=== PATIENT | female | born 2000 | race Caucasian/White ===

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

== ENCOUNTER 2020-01-01 12:10 | Outpatient (CLI) | payer OTHER, MEDICAID, SELFPAY ==
[2020-01-01 12:26] VITALS: BP 116/78; PULSE 93; RESP 13; TEMP 36.4; O2SAT 100
--- NOTE | 2020-01-01 12:36 | PC.NURSE ---
iuss master analyst here to do stress test on pt/
--- NOTE | 2020-01-01 12:45 | PC.NURSE ---
31 weeks , concern for intermittent rapid heart rate 120-130's , occured during asleep. +light headed,shortness of breath, denies chest pain. 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
[2020-01-01 12:47] VITALS: BP 125/68; PULSE 95; RESP 16; O2SAT 98
--- NOTE | 2020-01-01 13:04 | PM.OBTRLD ---
Visit Information Visit Information Date of evaluation: 01/01/20 Primary OB Provider: Maude Salinas On-call OB Provider: Terrance Billy Comments/Additional reasons for admission: 19 YO @ 31wks here for evaluation of palpitations. Notices racing heart w/ feeling lightheaded up to 3x/week, lasting 30-60 minutes at at time. Was instructed to come to ED for an EKG next time it occurs. It has gotten a little better since it started 15 minutes prior to arriving in ED. No cough, SOB, contractions or VB. Vital Signs Vital Signs: Vital Signs - 8 hr 01/01/20 12:26 01/01/20 12:47 Temperature 97.5 F L Pulse Rate 93 H 95 H Respiratory Rate 13 16 Blood Pressure 116/78 Blood Pressure [Left Arm] 125/68 Pulse Oximetry 100 98 PFSH Social History Smoking Status: Never smoker Review of Systems Review of Systems ROS: Yes All systems reviewed with the patient and are negative except as otherwise documented Exam Vital Signs (past 8 hours): - 01/01/20 12:26 01/01/20 12:47 Temperature 97.5 F L Pulse Rate 93 H 95 H Respiratory Rate 13 16 Blood Pressure 116/78 Blood Pressure [Left Arm] 125/68 Pulse Oximetry 100 98 Oxygen Delivery Method Room Air Chest Chest: normal inspection of the chest Resp Effort & Inspection: normal respiratory effort Cardio Rhythm: regular rhythm Heart Sounds: S1 normal and S2 normal Other: Gravid abdomen, no tenderness Evaluation Evaluation Baseline heart rate: 140 Variability: Moderate (11-25) monitor accelerations: Present monitor decelerations: Absent Contraction Frequency (minutes): 0 Category of Tracing: I Comments: CE deferred, not indicated Sinus tachycardia, rate 104 on EKG Diagnosis, Plan/Disposition Plan/Disposition Plan: Discharge to home with routine arrhythmia and precautions. Follow-up w/ CNM as previously scheduled. Plan to notify CNM if HR >120 at rest occurs again and we will evaluate this in L&D triage at that time. OB Disposition: home
== END 2020-01-01 13:29 | disposition home or self-care (01) ==
LOC: ED 13:15 → OB 03-22 09:00
PROVIDERS: PCP Nurse Practitioner Obstetrics & Gynecology; Visit Provider Nurse Practitioner Obstetrics & Gynecology
DX: O26.893 Other specified pregnancy related conditions, third trimester (principal); R00.2 Palpitations; Z3A.31 31 weeks gestation of pregnancy
CPT/HCPCS: 93005; 99283

== ENCOUNTER → 2020-01-27 10:47 | Outpatient (CLI) | payer OTHER, MEDICAID, SELFPAY ==
[2020-01-27 11:21] LABS: Alanine Aminotransferase 9 IU/L (<35); Albumin 3.5 g/dL (3.5-5.0); Albumin Globulin Ratio 1.2 (1.0-2.8); Alkaline Phosphatase 181 U/L (38-126); Aspartate Aminotransferase 19 IU/L (14-36); Bilirubin Total 0.5 mg/dL (0.2-1.3); Bilirubin Unconjugated 0.4 mg/dL (0.0-1.1); Globulin 2.9 g/dL (1.7-4.1); HEMOLYSIS < 15 (0-50); Total Protein 6.4 g/dL (6.3-8.2)
[2020-01-28 09:43] LABS: Bile Acids 2.6 umol/L (0.0-10.0)
== END ==
PROVIDERS: PCP Nurse Practitioner Obstetrics & Gynecology; Referring Provider Nurse Practitioner Obstetrics & Gynecology; Visit Provider Nurse Practitioner Obstetrics & Gynecology
DX: Z34.03 Encounter for supervision of normal first pregnancy, third trimester (principal); L29.9 Pruritus, unspecified
CPT/HCPCS: 36415; 80076; 82239

== ENCOUNTER → 2020-01-31 18:11 | Outpatient (ROUT) | payer OTHER, MEDICAID, SELFPAY | PROVIDERS: PCP Nurse Practitioner Obstetrics & Gynecology; Visit Provider Nurse Practitioner Obstetrics & Gynecology | DX: Z36.85 Encounter for antenatal screening for Streptococcus B (principal) | CPT/HCPCS: 87081 ==

== ENCOUNTER → 2020-02-03 11:30 | Outpatient (CLI) | payer OTHER, MEDICAID, SELFPAY ==
[2020-02-03 13:08] LABS: Alanine Aminotransferase 8 IU/L (<35); Albumin 3.4 g/dL (3.5-5.0); Albumin Globulin Ratio 1.2 (1.0-2.8); Alkaline Phosphatase 174 U/L (38-126); Aspartate Aminotransferase 18 IU/L (14-36); Bilirubin Total 0.4 mg/dL (0.2-1.3); Bilirubin Unconjugated 0.3 mg/dL (0.0-1.1); Globulin 2.9 g/dL (1.7-4.1); HEMOLYSIS < 15 (0-50); Total Protein 6.3 g/dL (6.3-8.2)
[2020-02-04 10:58] LABS: Bile Acids 7.6 umol/L (0.0-10.0)
== END ==
PROVIDERS: PCP Nurse Practitioner Obstetrics & Gynecology; Referring Provider Nurse Practitioner Obstetrics & Gynecology; Visit Provider Nurse Practitioner Obstetrics & Gynecology
DX: Z34.03 Encounter for supervision of normal first pregnancy, third trimester (principal); L29.9 Pruritus, unspecified
CPT/HCPCS: 36415; 80076; 82239

== ENCOUNTER → 2020-02-08 10:46 | Outpatient (CLI) | payer OTHER, MEDICAID, SELFPAY ==
[2020-02-08 11:24] LABS: Alanine Aminotransferase 9 IU/L (<35); Albumin 3.6 g/dL (3.5-5.0); Albumin Globulin Ratio 1.1 (1.0-2.8); Alkaline Phosphatase 193 U/L (38-126); Aspartate Aminotransferase 20 IU/L (14-36); Bilirubin Total 0.6 mg/dL (0.2-1.3); Bilirubin Unconjugated 0.5 mg/dL (0.0-1.1); Globulin 3.3 g/dL (1.7-4.1); HEMOLYSIS < 15 (0-50); Total Protein 6.9 g/dL (6.3-8.2)
[2020-02-11 11:36] LABS: Deoxycholic Acids 1.4 umol/L (.); Total Bile Acids 5.1 umol/L (.); Ursodeoxycholic Acids <0.10 umol/L (.)
== END ==
PROVIDERS: PCP Nurse Practitioner Obstetrics & Gynecology; Referring Provider Nurse Practitioner Obstetrics & Gynecology; Visit Provider Nurse Practitioner Obstetrics & Gynecology
DX: Z34.03 Encounter for supervision of normal first pregnancy, third trimester (principal); L29.9 Pruritus, unspecified
CPT/HCPCS: 36415; 80076; 82542

== ENCOUNTER → 2020-02-17 11:06 | Outpatient (CLI) | payer OTHER, MEDICAID, SELFPAY ==
[2020-02-17 11:35] LABS: Alanine Aminotransferase 8 IU/L (<35); Albumin 3.5 g/dL (3.5-5.0); Albumin Globulin Ratio 1.1 (1.0-2.8); Alkaline Phosphatase 199 U/L (38-126); Aspartate Aminotransferase 21 IU/L (14-36); Bilirubin Total 0.5 mg/dL (0.2-1.3); Bilirubin Unconjugated 0.4 mg/dL (0.0-1.1); Globulin 3.2 g/dL (1.7-4.1); HEMOLYSIS < 15 (0-50); Total Protein 6.7 g/dL (6.3-8.2)
== END ==
PROVIDERS: PCP Nurse Practitioner Obstetrics & Gynecology; Referring Provider Nurse Practitioner Obstetrics & Gynecology; Visit Provider Nurse Practitioner Obstetrics & Gynecology
DX: Z34.03 Encounter for supervision of normal first pregnancy, third trimester (principal); L29.9 Pruritus, unspecified
CPT/HCPCS: 36415; 80076; 82239

== ENCOUNTER 2020-02-28 14:12 | Outpatient (CLI) | payer OTHER, MEDICAID, SELFPAY ==
[2020-02-28 15:12] LABS: Add Manual Diff / Slide Review NO; Basophils Absolute Auto 0 /uL (0-100); Basophils Percent Auto 0.4 % (0-2); Eosinophils Absolute Auto 0 /uL (0-450); Eosinophils Percent Auto 0.2 % (2-4); Hematocrit 32.5 % (36-46); Hemoglobin 10.5 g/dL (12.0-16.0); Lymphocytes Absolute Auto 1400 /uL (1100-4500); Lymphocytes Percent Auto 10.4 % (25-40); Mean Corpuscular HGB Conc 32.3 % (30-36); Mean Corpuscular Hemoglobin 26.4 PG (26-34); Mean Corpuscular Volume 81.9 fL (80-100); Monocytes Absolute Auto 1000 /uL (0-900); Monocytes Percent Auto 7.9 % (3-14); Neutrophils Absolute Auto 10800 /uL (1500-7000); Neutrophils Percent Auto 81.1 % (50-75); Platelet Count 213 X10^3/uL (150-400); Red Blood Cell Count 3.96 X10^6/uL (4.0-5.2); White Blood Cell Count 13.3 X10^3/uL (4.5-11.0)
[2020-02-28 15:17] LABS: Aspartate Aminotransferase 20 IU/L (14-36); BUN Creatinine Ratio 9.8 (6-22); Blood Urea Nitrogen 5 mg/dL (7-17); Estimated Glomerular Filt Rate > 60.0 mL/min (>60); Uric Acid 5.9 mg/dL (2.5-6.2)
--- NOTE | 2020-02-28 15:20 | PM.OBTRLD ---
Visit Information Visit Information Date of evaluation: 02/28/20 Primary OB Provider: Maude Salinas On-call OB Provider: Arelis Taylor Reason for Evaluation: Yes non-stress test and Yes other Comments/Additional reasons for admission: 19YO @ [id number] here for evaluation after elevated BP in clinic. Routine PN care w/ CNM. Lots of FM. No ctx, VB or LOF. No [place], vision changed or RUQ pain. CE in clinic 4cm/80%/-1, posterior, firm. Vital Signs Vital Signs: BP 126/74, HR88, T97.5F Temporal PFSH Social History Smoking Status: Never smoker Review of Systems Review of Systems ROS: Yes All systems reviewed with the patient and are negative except as otherwise documented Exam Presentation: vertex Objective Labs Result Diagrams: 02/28/20 14:55 02/28/20 14:55 Labs: Laboratory Results - last 24 hr 02/28/20 02/28/20 14:55 14:55 WBC 13.3 H RBC 3.96 L Hgb 10.5 L Hct 32.5 L MCV 81.9 MCH 26.4 MCHC 32.3 RDW 15.0 H Plt Count 213 Neut % (Auto) 81.1 H Lymph % (Auto) 10.4 L [place] % (Auto) 7.9 Eos % (Auto) 0.2 L Baso % (Auto) 0.4 Neut # (Auto) 13271 H Lymph # (Auto) 1400 [place] # (Auto) 1000 H Eos # (Auto) 0 Baso # (Auto) 0 BUN 5 L Creatinine 0.51 L Estimated GFR > 60.0 BUN/Creatinine Ratio 9.8 Uric Acid 5.9 AST 20 Evaluation Evaluation Baseline heart rate: 130 Variability: Moderate (11-25) monitor accelerations: Present monitor decelerations: Early Contraction Frequency (minutes): 5 Uterine Contraction Intensity: Mild Category of Tracing: I Laboratory results: Laboratory Tests 02/28/20 02/28/20 14:55 14:55 WBC 13.3 H RBC 3.96 L Hgb 10.5 L Hct 32.5 L MCV 81.9 MCH 26.4 MCHC 32.3 RDW 15.0 H Plt Count 213 Neut % (Auto) 81.1 H Lymph % (Auto) 10.4 L [place] % (Auto) 7.9 Eos % (Auto) 0.2 L Baso % (Auto) 0.4 Neut # (Auto) 73341 H Lymph # (Auto) 1400 [place] # (Auto) 1000 H Eos # (Auto) 0 Baso # (Auto) 0 BUN 5 L Creatinine 0.51 L Estimated GFR > 60.0 BUN/Creatinine Ratio 9.8 Uric Acid 5.9 AST 20 Diagnosis, Plan/Disposition Final Diagnosis (1) Elevated blood pressure reading without diagnosis of hypertension: Current Visit: Yes Status: Acute (2) 40 weeks gestation of : Current Visit: Yes Status: Acute Plan/Disposition Plan: Discharge to home with routine precautions. Follow-up 03/02/20 @ 1pm for BP check. OB Disposition: home
[2020-02-28 16:33] LABS: Creatinine Urine Random 9.8 mg/dL; Protein (Total) Urine Random 15 mg/dL (0-12); Protein Creatinine Ratio Urine 1.53 GRAM/24H
== END 2020-02-28 15:31 | disposition home or self-care (01) ==
LOC: LABOR 15:27 → OB 02-29 12:39
PROVIDERS: Referring Provider Nurse Practitioner Obstetrics & Gynecology; Visit Provider Nurse Practitioner Obstetrics & Gynecology
DX: O48.0 Post-term pregnancy (principal); O26.893 Other specified pregnancy related conditions, third trimester; R03.0 Elevated blood-pressure reading, without diagnosis of hypertension; Z3A.40 40 weeks gestation of pregnancy
CPT/HCPCS: 59025; 82570; 84156; 84450; 84550; 85025; G0378; G0379

== ENCOUNTER 2020-03-02 09:26 | Inpatient (IN) | payer OTHER, MEDICAID, SELFPAY ==
--- NOTE | 2020-03-02 09:45 | P.HPOB_ITS ---
OB HPI Date/Time Date of admission: 03/02/20 Date Patient Seen: 03/02/20 Time Patient Seen: 09:15 History of Present Condition Chief complaint: MATERNITY : 1 Para: 0 Estimated Date of Delivery: 02/28/20 Estimated Gestational Age (weeks): 40.3 Narrative: Jes Geiger is a 19 year old female @ [id number] by LMP and 10 wk US who presents in active labor. Had SROM, clear fluid @ 0700 followed by immediately strong contractions. now crying and breathing through frequent contractions. NO VB. Fluid is clear. Uncomplicated PN care w/ CNM. 28wk ROSA from [place]. Received flu and Tdap vaccines. Indications Other reason(s) for admission: SROM @ 0700 followed by spontaneous labor History of Present care: good care, initiated at week # (10), number of visits and pounds weight gain (23) Dating criteria: LMP confirmed by 1st trimester US Ultrasounds: normal mid trimester US Obstetrical complications: none Medical complications: none Preadmission Labs Blood type: O (+) positive -: Antibody screen: negative, GBS status: negative, HBsAG: negative, HIV: negative and RPR/VDLR: negative -: Chlamydia screen: not detected and Gonorrhea screen: not detected -: Rubella: immune and Varicella: unknown HCT: 33 HCAB: negative 3 hr GTT: 2 hr (78/171/106) Evaluation Evaluation Baseline heart rate: 130 Variability: Moderate (11-25) monitor accelerations: Present monitor decelerations: Absent Contraction Frequency (minutes): 1 Uterine Contraction Intensity: Strong/Firm Category of Tracing: I Comments: Obvious SROM [facility] Medical History (Updated 03/02/20 @ 13:29 by Maude Salinas CNM) Depression (Acute) Social History (Updated 03/02/20 @ 13:30 by Maude Salinas CNM) marital status: unmarried,living together household members: spouse and family lives independently: Yes caregiver/support person: No housing: house education level: high school occupational status: unemployed current occupational exposures/hazards: No Smoking Status: Never smoker Meds Home Medications and Allergies Home Medications Medication Instructions Recorded Confirmed Type omeprazole 03/02/20 History [id number] acid tab PO 03/02/20 History [ Multi] Allergies Allergy/AdvReac Type Severity Reaction Status Date / Time No Known Drug Allergies Allergy Verified 02/09/20 12:25 Review of Systems Review of Systems ROS: Yes All systems reviewed with the patient and are negative except as otherwise documented Exam Vital Signs (past 8 hours): BP 112/66, HR 104, T35.0C Temporal Uterus Location (Fundal Height): 40 Presentation: vertex Estimated Weight (lbs): 7 Amniotic Fluid: clear Objective Labs Result Diagrams: 03/02/20 10:30 Assessment and Plan Assessment and Plan Assessment and Plan narrative: Admit, routine orders w/ SL IV, CBC and T&S. Labor support PRN. Respiratory screening, per protocol. Reassess in 4 hours or sooner, PRN. Time Spent with Patient Total time spent with greater than 50% in coordination of care (as documented) at patient's floor/unit and/or counseling patient:: Greater than 35 minutes
[2020-03-02 10:54] LABS: Add Manual Diff / Slide Review NO; Basophils Absolute Auto 100 /uL (0-100); Basophils Percent Auto 0.3 % (0-2); Eosinophils Absolute Auto 0 /uL (0-450); Eosinophils Percent Auto 0.1 % (2-4); Hematocrit 33.1 % (36-46); Hemoglobin 10.7 g/dL (12.0-16.0); Lymphocytes Absolute Auto 1300 /uL (1100-4500); Lymphocytes Percent Auto 8.1 % (25-40); Mean Corpuscular HGB Conc 32.4 % (30-36); Mean Corpuscular Hemoglobin 26.6 PG (26-34); Mean Corpuscular Volume 82.1 fL (80-100); Monocytes Absolute Auto 1100 /uL (0-900); Neutrophils Absolute Auto 13700 /uL (1500-7000); Neutrophils Percent Auto 84.5 % (50-75); Platelet Count 221 X10^3/uL (150-400); Red Blood Cell Count 4.03 X10^6/uL (4.0-5.2); Red Cell Distribution Width 15.5 % (11.6-14.8); White Blood Cell Count 16.2 X10^3/uL (4.5-11.0)
[2020-03-02] MEDS: OXYTOCIN PREMIX 30 UNIT/500 ML PLAST..BAG IV (12:59)
--- NOTE | 2020-03-02 13:15 | P.PCNOB_ITS ---
Labor & Delivery Delivery date: 03/02/20 Intrapartal events: None Cervical ripening method: none Induction method: none Delivery monitor: external FHT Route of delivery: L&D Laceration Description: Perineal - 2nd Degree Delivery repair: chromic (3.0) Estimated blood loss (mL): 130 Anesthesia type: None Narrative: Patient labored well in the tub and was assisted back to bed shortly after feeling spontaneous urge to push. Patient was presumed to be complete and rectal bulging was noted after pushing through several contractions. FHR was reassuring by IA through 1st stage of labor. Patient was switched to continuous EFM for second stage when a decrease to 80's was heard. Cat II FHR throughout seconds stage. NSVB of a viable baby girl in AHMET position w/ no NC or soulder dystocia. [place] was placed on maternal abdomen for drying and stimulation. Apgars 8/9. 30 units of pitocin in 500mL LR was started at 300mL/hr for AMTSL. After cessation of pulsation, the cord was double clamped and cut. Hospital cord blood sample was collected. Gentle cord traction and single maternal push led to spontaneous, Schultze delivery of shari pparently intact placenta, membranes and 3VC. Fundus immediately firm and bleeding minimal. A 2nd degree perineal laceration was repaired w/ 3.0 chromic in the usual fashion under 1% lidocaine local for good hemostasis and approximation. QBL 130mL. Both mother and baby stable and skin to skin as I left the room. [place] Baby 1: gender: Female Presentation: vertex Placenta delivery description: Spontaneous cord vessel description: 3 Vessels score (1 min): 8 score (5 min): 9 Plan for aftercare: Routine PP orders
[2020-03-02] MEDS: KETOROLAC 30 MG/ML VIAL IV (14:08)
[2020-03-02 15:34] VITALS: BP 123/65
[2020-03-02] MEDS: IBUPROFEN 600 MG TABLET PO (20:20)
[2020-03-03] MEDS: IBUPROFEN 600 MG TABLET PO ×3 (01:58→14:33)
--- NOTE | 2020-03-03 08:02 | P.DS_ITS ---
Discharge Providers Provider Date of admission: 03/02/20 09:26 Discharge Date: 03/03/20 Primary care physician: ROSE Bassett Consults: 03/03/20 13:13 Consult to Treasury Accountant Routine Comment: Discharge provider: Maude Salinas CNM Summary Hospital Course Date Patient Seen: 03/03/20 Time Patient Seen: 08:00 Procedures: Patient laying down in bed, her daughter. Feeling well overall. Voiding and ambulating independently. Tolerating general diet. Pain well controlled w/ ibuprofen. Bleeding is decreasing, no clots. Desires discharge to home as soon as possible. Peripartum Data Delivery Method: Natural Vaginal Laceration description: Perineal - 2nd Degree complications: none [place] 1: Gender: Female Disposition of : home Discharge Diagnosis (1) Second degree perineal laceration during delivery: Start Date: 03/02/20 Start Time: 12:39 Status: Acute Problem Details: routine PP course Status at Discharge Cognitive/behavioral status at discharge: oriented Functional status at discharge: independent ambulation Overall status at discharge: patient is progressing back to baseline Time Spent with Patient Time attestation: Total time spent providing and/or coordinating discharge services: Time spent: Less than 30 minutes Objective Labs Result Diagrams: 03/02/20 10:30 Labs: Laboratory Results - last 24 hr 03/02/20 03/02/20 10:30 10:30 WBC 16.2 H RBC 4.03 Hgb 10.7 L Hct 33.1 L MCV 82.1 MCH 26.6 MCHC 32.4 RDW 15.5 H Plt Count 221 Neut % (Auto) 84.5 H Lymph % (Auto) 8.1 L [place] % (Auto) 7.0 Eos % (Auto) 0.1 L Baso % (Auto) 0.3 Neut # (Auto) 18286 H Lymph # (Auto) 1300 [place] # (Auto) 1100 H Eos # (Auto) 0 Baso # (Auto) 100 Blood Type O Positive Antibody Screen Negative Exam Vital Signs (past 8 hours): BP-108/69, HR-78, RR-16, T-97.4F Temporal, SpO2-98% Other: Fundus firm @ u, lochia light, no clots. Perineum well approximated, mild edema. Discharge Plan Discharge Plan Patient Disposition: Home Discharge orders & Medications Prescriptions: New docusate sodium [DOK] 100 mg Capsule 100 mg PO BID 14 Days Qty: 28 RF: 0 acetaminophen 325 mg Tablet 650 mg PO Q6HR PRN (Reason: Pain, Mild (1-3)) 14 Days Qty: 60 RF: 2 ibuprofen 600 mg Tablet 600 mg PO Q6HR PRN (Reason: Pain, Mild (1-3)) 14 Days Qty: 60 RF: 2 Continued Multi 27-800 mg-mcg Tablet 1 tab PO DAILY RF: 0 Follow up/Referrals: Maude Salinas CNM [[facility]] - (Patient to schedule follow-up appointments at 2 weeks and 6 weeks ) Diet/Activity/Treatments Diet: Diet as Tolerated Activity: pelvic rest x 6 weeks Skin/Wound/Dressing Care Report to your healthcare provider any signs of infection, such as:: chills, fever, increased pain, unusual drainage and unusual redness Visit Report/Discharge Packet Instructions: DI for Depression Discharge Data Attending Provider: Maude Salinas Admit Date/Time: 03/02/20 09:26
[2020-03-03] MEDS: DOCUSATE 100 MG CAPSULE PO (08:35)
[2020-03-03 15:26] VITALS: BP 125/76; PULSE 97; RESP 16; TEMP 36.9
[2020-03-03 16:04] VITALS: BP 125/76; PULSE 97; RESP 16; TEMP 36.9
== END 2020-03-03 16:35 | disposition home or self-care (01) | DRG 807 ==
PROVIDERS: Admitting Provider Nurse Practitioner Obstetrics & Gynecology; Referring Provider Nurse Practitioner Obstetrics & Gynecology; Visit Provider Nurse Practitioner Obstetrics & Gynecology
DX: O70.1 Second degree perineal laceration during delivery (principal); Z37.0 Single live birth; Z3A.40 40 weeks gestation of pregnancy
CPT/HCPCS: 59050; 85025; 86850; 86900; 86901; 87635; G0379; J1885; J2590

== ENCOUNTER 2021-12-11 19:28 | Emergency (ER) | payer OTHER, MEDICAID, SELFPAY ==
[2021-12-11 19:31] VITALS: BP 144/66; PULSE 141; RESP 24; TEMP 37.2; O2SAT 97
--- NOTE | 2021-12-11 19:38 | DI.US.S_ITS ---
PROCEDURE: US BREAST LT LIMITED COMPARISON: None. INDICATIONS: PAIN, REDNESS; FEVER/CHILLS FINDINGS: Sonographic images of the left breast at the 2 o'clock position demonstrate no focal fluid collection, architectural distortion or mass lesion is identified. IMPRESSION: Unremarkable exam. Dictated by: Chanel Arellano M.D. on 12/11/2021 at 20:38 Approved by: Chanel Arellano M.D. on 12/11/2021 at 20:39
[2021-12-11 19:40] VITALS: PULSE 130
[2021-12-11 19:42] VITALS: BP 122/69; PULSE 126; RESP 25; O2SAT 98
[2021-12-11] MEDS: SODIUM CHLORIDE 0.9% 1,000 ML 1000 ML IV (19:54)
[2021-12-11 20:00] VITALS: BP 121/75; PULSE 116; RESP 22; TEMP 36.9; O2SAT 98
[2021-12-11 20:04] LABS: Add Manual Diff / Slide Review NO; Basophils Absolute Auto 0 /uL (0-100); Basophils Percent Auto 0.1 % (0-2); Eosinophils Absolute Auto 0 /uL (0-450); Eosinophils Percent Auto 0.1 % (2-4); Hematocrit 38.6 % (36-46); Hemoglobin 13.2 g/dL (12.0-16.0); Lymphocytes Absolute Auto 600 /uL (1100-4500); Lymphocytes Percent Auto 3.5 % (25-40); Mean Corpuscular HGB Conc 34.1 % (30-36); Mean Corpuscular Hemoglobin 29.3 PG (26-34); Mean Corpuscular Volume 85.9 fL (80-100); Monocytes Absolute Auto 1100 /uL (0-900); Monocytes Percent Auto 6.4 % (3-14); Neutrophils Absolute Auto 15500 /uL (1500-7000); Neutrophils Percent Auto 89.9 % (50-75); Platelet Count 223 X10^3/uL (150-400); Red Blood Cell Count 4.49 X10^6/uL (4.0-5.2); Red Cell Distribution Width 13.4 % (11.6-14.8); White Blood Cell Count 17.3 X10^3/uL (4.5-11.0)
[2021-12-11 20:21] LABS: Alanine Aminotransferase 20 IU/L (<35); Albumin 4.7 g/dL (3.5-5.0); Albumin Globulin Ratio 1.5 (1.0-2.8); Alkaline Phosphatase 84 U/L (38-126); Aspartate Aminotransferase 21 IU/L (14-36); BUN Creatinine Ratio 10.6 (6-22); Bilirubin Total 0.9 mg/dL (0.2-1.3); Blood Urea Nitrogen 7 mg/dL (7-17); Calcium 9.6 mg/dL (8.4-10.2); Carbon Dioxide 21 mmol/L (22-32); Chloride 108 mmol/L (98-107); Estimated Glomerular Filt Rate > 60.0 mL/min (>60); Globulin 3.1 g/dL (1.7-4.1); Glucose 120 mg/dL (70-100); HEMOLYSIS 18 (0-50); Lactate (Lactic Acid) 1.8 mmol/L (0.7-2.1); Sodium 137 mmol/L (137-145); Total Protein 7.8 g/dL (6.3-8.2)
[2021-12-11 20:35] VITALS: PULSE 106; RESP 25; O2SAT 97
[2021-12-11] MEDS: AMOXICILLIN/CLAV 875/125 MG 1 TAB PO (20:44)
[2021-12-11 20:59] VITALS: PULSE 98
--- NOTE | 2021-12-11 21:02 | ED_ITS ---
HPI - Fever General Chief Complaint: Fever Stated Complaint: fever, thinks mastitis Time Seen by Provider: 12/11/21 19:37 Source: patient Mode of arrival: Ambulatory History of Present Illness HPI Narrative: 21-year-old female nonsmoker with noncontributory chronic medical history presents with her and young child with a chief complaint of increasing pain, redness over the course of the day to her left breast. She is still acti vely breast-feeding her child who is only 2 years old. She had been in her normal state of health until she started developing symptoms over the course of the day. She has had subjective fever and chills with denies any nausea or vomiting. She has continued to breast-feed despite her discomfort. She denies runny nose, sore throat or cough. She has had no change in bowel habits or difficulty with urination. Related Data Home Medications Medication Instructions Recorded Confirmed vit 122-ferrous fumarate 1 tab PO DAILY 03/02/20 03/02/20 27 mg iron-folic acid 800 mcg tablet ( Multi) Previous Rx's Medication Instructions Recorded acetaminophen 325 mg tablet 650 mg PO Q6HR PRN 14 Days #60 tab 03/03/20 ibuprofen 600 mg tablet 600 mg PO Q6HR PRN 14 Days #60 tab 03/03/20 dicloxacillin 500 mg capsule 500 mg PO Q6H 7 Days #28 cap 12/11/21 Allergies Allergy/AdvReac Type Severity Reaction Status Date / Time No Known Drug Allergies Allergy Verified 02/09/20 12:25 Review of Systems Review of Systems Narrative: GENERAL: See HPI. HEENT: Denies sinus pain, ear pain, sore throat, difficulty swallowing, dizziness. RESPIRATORY: Denies dyspnea, cough, wheezing, hemoptysis, sputum. CARDIOVASCULAR: Denies chest pain, palpitations, orthopnea, edema, GASTROINTESTINAL: Denies nausea, vomiting, abdominal pain, diarrhea, constipation, melena. : Denies dysuria, frequency, incontinence, hematuria, urinary retention. MUSCULOSKELETAL: denies weakness, joint pain, or bony pain SKIN: See HPI NEUROLOGIC: Denies weakness, headache, numbness, change in speech, confusion, seizures, incoordination. PSYCHIATRIC: No concerning psychosocial issues. 12 point review of systems is negative except for those stated above Patient History Medical History Depression Social History marital status: unmarried,living together household members: spouse and family lives independently: Yes caregiver/support person: No housing: house education level: high school occupational status: unemployed current occupational exposures/hazards: No Smoking Status: Never smoker Smoking Status: Never smoker Substance Use Type: does not use Exam Narrative Exam Narrative: GENERAL: [21] year old patient appears stated age. Well-developed patient, in mild distress. Tearful, anxious HEAD: Atraumatic. Normocephalic. EYES: Pupils equal round and reactive. Extraocular motions intact. No scleral icterus. No injection or drainage. ENT: Nose without bleeding, purulent drainage. Throat without erythema, tonsillar hypertrophy or exudate. Airway patent. NECK: Trachea midline. Non tender CARDIOVASCULAR: Tachycardic but regular rhythm without murmurs, gallops, or rubs. 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 There is some erythema noted in her left RESPIRATORY: Clear to auscultation. Breath sounds equal bilaterally. No wheezes, rales, or rhonchi. GASTROINTESTINAL: Abdomen soft, non-tender, nondistended. EXTREMITIES: No edema or joint tenderness. BACK: Nontender without deformity or crepitance. No flank tenderness. NEURO: AOx3. SKIN: No rash or erythema of visible areas Initial Vital Signs Initial Vital Signs: Vital Signs Temperature 98.9 F 12/11/21 19:31 Pulse Rate 141 H 12/11/21 19:31 Respiratory Rate 24 12/11/21 19:31 Blood Pressure 144/66 H 12/11/21 19:31 Pulse Oximetry 97 12/11/21 19:31 Course Orders Ordered: Discontinued Medications Amoxicillin/Clavulanate Potassium (Amoxicillin/Clav 875/125 Mg) 1 tab PO NOW ONE Stop: 12/11/21 20:40 Last Admin: 12/11/21 20:44 Dose: 1 tab Documented by: DARRYL Dicloxacillin Sodium (Dicloxacillin 250 Mg Capsule) 500 mg PO Q6HR [facility] Dicloxacillin Sodium (Dicloxacillin 250 Mg Capsule) 500 mg PO NOW ONE Stop: 12/11/21 20:30 Last Admin: 12/11/21 20:35 Dose: Not Given Documented by: EZEQUIEL Dicloxacillin Sodium (Dicloxacillin 250 Mg Capsule) 500 mg PO NOW ONE Stop: 12/11/21 20:37 Last Admin: 12/11/21 20:43 Dose: Not Given Documented by: DARRYL Sodium Chloride (Normal Saline 0.9%) 1,000 mls @ 1,000 mls/hr IV BOLUS ONE Stop: 12/11/21 20:37 Last Infusion: 12/11/21 21:19 Dose: 0 mls/hr Documented by: Admin: 12/11/21 19:54 Dose: 1,000 mls/hr Documented by: DARRYL Vital Signs Vital signs: Vital Signs - 8 hr 12/11/21 20:35 12/11/21 20:59 Pulse Rate 106 H 98 H Respiratory Rate 25 H Pulse Oximetry 97 MDM - Fever Lab Data Result diagrams: 12/11/21 19:47 12/11/21 19:47 Labs: Lab Results 12/11/21 12/11/21 12/11/21 Range/Units 19:47 19:47 19:47 WBC 17.3 H (4.5-11.0) X10^3/uL RBC 4.49 (4.0-5.2) X10^6/uL Hgb 13.2 (12.0-16.0) g/dL Hct 38.6 (36-46) % MCV 85.9 (80-100) fL MCH 29.3 (26-34) PG MCHC 34.1 (30-36) % RDW 13.4 (11.6-14.8) % Plt Count 223 (150-400) X10^3/uL Neut % (Auto) 89.9 H (50-75) % Lymph % (Auto) 3.5 L (25-40) % [place] % (Auto) 6.4 (3-14) % Eos % (Auto) 0.1 L (2-4) % Baso % (Auto) 0.1 (0-2) % Neut # (Auto) 19104 H (0651-7836) /uL Lymph # (Auto) 600 L (2767-2177) /uL [place] # (Auto) 1100 H (0-900) /uL Eos # (Auto) 0 (0-450) /uL Baso # (Auto) 0 (0-100) /uL Sodium 137 (137-145) mmol/L Potassium 4.0 (3.4-5.1) mmol/L Chloride 108 H (98-107) mmol/L Carbon Dioxide 21 L (22-32) mmol/L BUN 7 (7-17) mg/dL Creatinine 0.66 (0.52-1.04) mg/dL Estimated GFR > 60.0 (>60) mL/min BUN/Creatinine Ratio 10.6 (6-22) Glucose 120 H (70-100) mg/dL Lactate 1.8 (0.7-2.1) mmol/L Calcium 9.6 (8.4-10.2) mg/dL Total Bilirubin 0.9 (0.2-1.3) mg/dL AST 21 (14-36) IU/L ALT 20 (<35) IU/L Alkaline Phosphatase 84 (38-126) U/L Total Protein 7.8 (6.3-8.2) g/dL Albumin 4.7 (3.5-5.0) g/dL Globulin 3.1 (1.7-4.1) g/dL Albumin/Globulin Ratio 1.5 (1.0-2.8) Point of Care Testing Test Results Negative Urine Dip Bedside Urine Glucose Negative Bedside Urine Bilirubin - Negative Bedside Urine Ketone - Negative Urine Specific [place] 1.015 Bedside Urine Occult Blood +++ Bedside Urine pH 6.0 Bedside Urine Protein - Negative Bedside Urine Urobilinogen - Negative Bedside Urine Nitrite - Negative Bedside Urine Leukocytes - Negative Esterase Imaging Data Breast US: Radiologist's Impression: [address] [address] Ultrasound Report Signed Patient: Jes Marvin MR#: [id number] : 2000 Acct:[id number] Age/Sex: 21 / F Date of Service: 12/11/21 Loc: ED Accession Number: [id number] ?? Procedure: US breast LT limited Ordering Provider: Jus Oneil D.O. PROCEDURE: US BREAST LT LIMITED ? COMPARISON: None. ? INDICATIONS: PAIN, REDNESS; FEVER/CHILLS ? FINDINGS: Sonographic images of the left breast at the 2 o'clock position demonstrate no focal fluid collection, architectural distortion or mass lesion is identified. ? IMPRESSION: Unremarkable exam. ? ? ? Dictated by: Chanel Arellano M.D. on 12/11/2021 at 20:38 ? ? Approved by: Chanel Arellano M.D. on 12/11/2021 at 20:39 ? Discharge Plan Departure Patient Disposition: Home Clinical Impression: Mastitis Instructions: DI for Mastitis Activity Restrictions/Additional Instructions: *You have been diagnosed with [left sided mastitis. Your exam, labs and ultrasound are very reassuring ] *What to do: *Please continue to take your regular medications as directed. [x ] New medication prescriptions sent to your pharmacy: [[facility] ] [ ] New medication written as a paper prescription [ ] No new medications given *Please follow up with your primary care provider in 2-3 days, call for an appointment. Let them know you were seen in the Emergency Department and that we ask that you be seen in follow up. We will electronically transmit a record of today's note if your PCP is in our system *If you do not have a primary care provider please contact the [facility] Resource line at [phone]. They will ask some questions about your medical history and help get you set up with a doctor in the community. *Return to Emergency Department if you should have any new, worsening or concerning symptoms, such as [fever greater than 101 F, shaking chills, worseni ng pain, persistent vomiting or other bothersome symptoms] Prescriptions: New dicloxacillin 500 mg capsule 500 mg PO Q6H 7 Days Qty: 28 0RF No Action Multi 27-800 mg-mcg Tablet 1 tab PO DAILY 0RF acetaminophen 325 mg Tablet 650 mg PO Q6HR PRN (Reason: Pain, Mild (1-3)) 14 Days Qty: 60 2RF ibuprofen 600 mg Tablet 600 mg PO Q6HR PRN (Reason: Pain, Mild (1-3)) 14 Days Qty: 60 2RF
== END 2021-12-11 21:21 | disposition home or self-care (01) ==
PROVIDERS: Emergency Provider Emergency Medicine
DX: N61.0 Mastitis without abscess (principal)
CPT/HCPCS: 36415; 76642; 80053; 81003; 81025; 83605; 85025; 87040; 96360; 99284

== ENCOUNTER → 2023-03-19 11:46 | Outpatient (CLI) | payer OTHER, MEDICAID, SELFPAY ==
--- NOTE | 2023-03-19 11:48 | DI.RAD.S_ITS ---
PROCEDURE: XR ANKLE RT MIN 3V INDICATIONS: Right ankle pain TECHNIQUE: 3 views of the ankle were acquired. COMPARISON: [facility], , ANKLE 3 VIEWS LEFT, 01/07/2015, 11:47. FINDINGS: Bones: No fractures or dislocations. Ankle mortise is normally aligned. No suspicious bony lesions. Soft tissues: No tibiotalar joint effusion. Achilles tendon appears normal. IMPRESSION: No acute osseous abnormality. Dictated by: Francisco Mireles M.D. on 03/19/2023 at 14:49 Approved by: Francisco Mireles M.D. on 03/19/2023 at 14:52
== END ==
PROVIDERS: Referring Provider Nurse Practitioner Family; Visit Provider Nurse Practitioner Family
DX: M25.571 Pain in right ankle and joints of right foot (principal)
CPT/HCPCS: 73610

== ENCOUNTER 2024-01-06 11:16 | Emergency (ER) | payer OTHER, MEDICAID, SELFPAY ==
[2024-01-06 11:33] VITALS: BP 132/68; PULSE 106; RESP 17; TEMP 36.3; O2SAT 100; BMI 30.2
--- NOTE | 2024-01-06 11:58 | ED_ITS ---
HPI - Recheck/Abnormal Lab/Rx <Leah Herrera PA-C - Last Filed: 01/06/24 19:11> General Chief Complaint: Recheck/Abnormal Lab/Rx Stated Complaint: donated blood/feels like she is going to pass out Time Seen by Provider: 01/06/24 11:47 Source: patient Mode of arrival: Wheelchair History of Present Illness HPI narrative: Patient is a previously well 23-year-old female who donated blood this morning. After donation, she was walking to the hospital and felt weak, lightheaded and had blurry vision. She was sent to the emergency department for evaluation. She reports feeling well this morning with no recent respiratory or other illness. She is donated blood before without any trouble. She denies chest pain, shortness of breath, nausea. Her blurry vision and lightheadedness have resolved by the time she is in the emergency department. Related Data Home Medications Medication Instructions Recorded Confirmed vit 122-ferrous fumarate 1 tab PO DAILY 03/02/20 03/19/23 27 mg iron-folic acid 800 mcg tablet ( Multi) duloxetine [Cymbalta] PO 03/19/23 03/19/23 hydroxyzine HCl 25 mg tablet 25 mg PO BEDTIME 03/19/23 03/19/23 Previous Rx's Medication Instructions Recorded acetaminophen 325 mg tablet 650 mg (2 x 325 mg) PO Q6HR PRN 03/03/20 Pain, Mild (1-3) 14 days #60 tabs ibuprofen 600 mg tablet 600 mg PO Q6HR PRN Pain, Mild 03/03/20 (1-3) 14 days #60 tabs Allergies Allergy/AdvReac Type Severity Reaction Status Date / Time No Known Drug Allergies Allergy Verified 01/06/24 11:33 Review of Systems <Leah Herrera PA-C - Last Filed: 01/06/24 19:11> Review of Systems ROS Unobtainable: All systems reviewed & are unremarkable except as noted in HPI and below Patient History <Leah Herrera PA-C - Last Filed: 01/06/24 19:11> Medical History Depression Social History marital status: unmarried,living together household members: spouse and family lives independently: Yes caregiver/support person: No housing: house education level: high school occupational status: unemployed current occupational exposures/hazards: No Smoking Status: Never smoker Smoking Status: Never smoker Substance Use Type: does not use Exam <Leah Herrera PA-C - Last Filed: 01/06/24 19:11> Narrative Exam Narrative: GENERAL: 23 year old patient appears stated age. Well-developed patient, in no acute distress. NEURO: AOx3. HEAD: Atraumatic. Normocephalic. EYES: Pupils equal round and reactive. Extraocular motions intact. No scleral icterus. No injection or drainage. ENT: Nose without bleeding or purulent drainage. Airway patent. HEART: RRR, no murmur gallop or rub RESPIRATORY: Breath sounds clear and equal bilaterally EXTREMITIES: No edema or joint tenderness. SKIN: No rash or erythema of visible areas Initial Vital Signs Initial Vital Signs: Vital Signs Temperature 97.4 F L 01/06/24 11:33 Pulse Rate 106 H 01/06/24 11:33 Respiratory Rate 17 01/06/24 11:33 Blood Pressure 132/68 01/06/24 11:33 Pulse Oximetry 100 01/06/24 11:33 Oxygen Delivery Method Room Air 01/06/24 11:33 <Irene Lynn MD - Last Filed: 01/07/24 11:19> Initial Vital Signs Initial Vital Signs: Vital Signs Temperature 97.4 F L 01/06/24 11:33 Pulse Rate 106 H 01/06/24 11:33 Respiratory Rate 17 01/06/24 11:33 Blood Pressure 132/68 01/06/24 11:33 Pulse Oximetry 100 01/06/24 11:33 Oxygen Delivery Method Room Air 01/06/24 11:33 Course <Leah Herrera PA-C - Last Filed: 01/06/24 19:11> Vital Signs Vital signs: Vital Signs - 8 hr 01/06/24 11:33 01/06/24 12:17 Temperature 97.4 F L Pulse Rate 106 H 110 H Respiratory Rate 17 16 Blood Pressure 132/68 109/68 Pulse Oximetry 100 100 Oxygen Delivery Method Room Air <Irene Lynn MD - Last Filed: 01/07/24 11:19> Vital Signs Vital signs: Vital Signs - 8 hr 01/06/24 11:33 01/06/24 12:17 Temperature 97.4 F L Pulse Rate 106 H 110 H Respiratory Rate 17 16 Blood Pressure 132/68 109/68 Pulse Oximetry 100 100 Oxygen Delivery Method Room Air MDM - Recheck/Abnormal Lab/Rx <Leah Herrera PA-C - Last Filed: 01/06/24 19:11> [facility] Narrative Medical decision making narrative: Multiple etiologies for patient's symptoms considered including, but not limited to: Presyncope, vasovagal, hypotension Patient is a 23-year-old who felt weak, dizzy and had blurry vision after donating blood today. After eating snacks, drinking juice and water and resting in the emergency room, she feels much better. Her blood pressure is 109/68 and she has a slight tachycardia at 1:10 a.m.. She feels very well and does not have to go to work today. She is agreeable to discharge, she will go home and rest take it easy drink plenty of fluids and eat adequate healthy food. If her symptoms recur or if she feels unwell, she should return for reassessment. There is no need for further evaluation today and this otherwise healthy 23-year-old female who experienced a vasovagal reaction after donating blood. Patient's symptoms improved over duration of stay with above-stated therapies. Findings and discharge diagnosis discussed with patient/family followed by verbalization of understanding Return precautions discussed with patient/family whom verbalize understanding of diagnosis and plan Discharge Plan Departure Patient Disposition: Home Clinical Impression: Vasovagal episode Instructions: How to Prevent Falls Activity Restrictions/Additional Instructions: *You have been diagnosed with vasovagal reaction after donating blood. This can happen when the large volume of blood is removed for blood donation and the body has not quite had time to adjust to this. I would recommend continuing to take it very easy today, rest, hydrate, eat plenty of healthy food. If you have persistent symptoms that are causing you dizziness, lightheadedness, changes in vision, please return to the emergency department. As you know, it is common to feel somewhat fatigued for a day or after blood donation. *What to do: *Please continue to take your regular medications as directed. [ ] New medication prescriptions sent to your pharmacy: [ ] [ ] New medication written as a paper prescription [x] No new medications given *Please follow up with your primary care provider in 2-3 days, call for an appointment. Let them know you were seen in the Emergency Department and that we ask that you be seen in follow up. We will electronically transmit a record of today's note if your PCP is in our system *If you do not have a primary care provider please contact the [facility] Resource line at [phone]. They will ask some questions about your medical history and help get you set up with a doctor in the community. *Return to Emergency Department if you should have any new, worsening or concerning symptoms, such as [fever greater than 101 F, shaking chills, worsening pain, persistent vomiting or other concerning symptoms]. Prescriptions: No Action hydroxyzine HCl 25 mg tablet 25 mg PO BEDTIME duloxetine [Cymbalta] PO Multi 27-800 mg-mcg Tablet 1 tab PO DAILY acetaminophen 325 mg Tablet 650 mg PO Q6HR PRN (Reason: Pain, Mild (1-3)) 14 Days Qty: 60 2RF ibuprofen 600 mg Tablet 600 mg PO Q6HR PRN (Reason: Pain, Mild (1-3)) 14 Days Qty: 60 2RF Referrals: Miscellaneous,Doctor, [Primary Care Provider] - Stand Alone Forms: Patient Portal/API ED Sign-out <Irene Lynn MD - Last Filed: 01/07/24 11:19> [facility]ign [facility] Attestation: I was immediately available in the department for consultation throughout this patient's visit. Irene Lynn MD
[2024-01-06 12:17] VITALS: BP 109/68; PULSE 110; RESP 16; O2SAT 100
== END 2024-01-06 12:18 | disposition home or self-care (01) ==
PROVIDERS: Emergency Provider Physician Assistant
DX: R55 Syncope and collapse (principal); H53.8 Other visual disturbances
CPT/HCPCS: 99281